=== PATIENT | female | born 1965 | race Asian ===

== ENCOUNTER 2016-12-16 12:40 | Day surgery (SDC) | payer BC ==
[~2016-12-16] VITALS: Ht 154.9 cm; Wt 56.9 kg
[2016-12-16 15:14] VITALS: Ht 154.9 cm; Wt 56.9 kg
[2016-12-16] MEDS ORDERED: OMEGA 3 PO (15:21)
[2016-12-16] MEDS ORDERED: GLUCOSAMINE PO (15:21)
[2016-12-16] MEDS ORDERED: AMLODIPINE PO (15:21)
[2016-12-16 15:46] VITALS: BP 134/93; PULSE 77; RESP 20
[2016-12-16] MEDS ORDERED: LIDOCAINE 2% (SDV) 5 ML INJ ONE (15:53)
[2016-12-16] MEDS ORDERED: PROPOFOL 20 ML ONE (15:53)
[2016-12-16] MEDS ORDERED: MIDAZOLAM 1 MG/ML 2 ML INJ ONE (15:54)
--- NOTE | 2016-12-16 16:45 | GILP ---
DATE OF PROCEDURE: 12/16/2016 PROCEDURE: Colonoscopy to cecum. PREMEDICATION: Monitored anesthesia care by anesthesiologist. SURGEON: Alisson Tang MD INSTRUMENT USED: Olympus colonoscope. PREPARATION: Adequate. TECHNIQUE: After informed consent, with the patient/relatives understanding the procedure, its indic ations potential risks and complications, including but not limited to: allergic reaction, bleeding, perforation, infection, missed lesions and after all pertinent questions were answered to the patie nt's satisfaction, the patient/relatives signed the witnessed informed consent. Following this, premedication was administered slowly IV push by under careful cardiovascular and re spiratory monitoring with pulse oximetry, automatic blood pressure and manager monitoring. Once the sedativ e effect was achieved, the patient was placed in the left lateral decubitus position, digital rectal examination was performed. The colonoscope was then introduced and advanced under visual control th roughout all segments of the colon including: the rectum, sigmoid, descending colon, splenic flexure , transverse colon, hepatic flexure, ascending colon and finally reaching the cecum which was clearl y identified by transillumination, finger indentation and the ileocecal valve. Careful examination o f the mucosa of the lower gastrointestinal tract both on insertion as well as withdrawal of the inst rument disclosed the following findings: Rectal Examination: No evidence of perirectal disease, no masses. Colonic Mucosa: The colonic mucosa is entirely unremarkable throughout. The ileocecal valve was cl early identified and appears unremarkable. The instrument was withdrawn reexamining the mucosa in d etail. No additional abnormalities are noted with the exception of moderate-sized internal hemorrho ids. The instrument was then withdrawn, the patient tolerated the procedure well and was transferred out of the Endoscopy Suite awake and in good condition to continue recovery under observation. IMPRESSION: Moderate-sized internal hemorrhoids, otherwise normal colonoscopy to cecum. PLAN: The patient annual Hemoccult stool testing is recommended and screening colonoscopy in 10 yea rs is recommended. Dictated By: ALISSON TANG MS/YRN Conf#: [id number] DID#: [id number] CC: ALISSON TANG;*EndCC*
== END 2016-12-16 17:20 | disposition home or self-care (01) ==
LOC: GIL 12:40
PROVIDERS: ATTEND Internal Medicine Gastroenterology
DX: Z12.11 Encounter for screening for malignant neoplasm of colon (principal); K64.8 Other hemorrhoids
CPT/HCPCS: 45378; 84703; J2250; Z7610